=== PATIENT | male | born 1975 | race Caucasian/White ===

== ENCOUNTER 2017-08-04 06:57 | Emergency (ER) | payer SELFPAY ==
[2017-08-04] MEDS: IPRATROPIUM (NEB) 0.5 MG/2.5 ML AMP NEB (09:13)
[2017-08-04] MEDS: ALBUTEROL 0.5% (NEB) 2.5 MG/0.5 ML AMP INH (09:13)
[2017-08-04 09:14] LABS: ADD MAN DIFF? NO
[2017-08-04 09:17] LABS: BASOPHIL # 0.1 10^3/ul (0.0-0.1); BASOPHILS % 1.6 % (0.0-2.0); EOSINOPHILS # 1.1 10^3/ul (0.0-0.5); EOSINOPHILS % 16.1 % (0.0-7.0); HEMATOCRIT 50.1 % (42.0-52.0); HEMOGLOBIN 16.8 g/dl (14.0-18.0); LYMPHOCYTES # 1.5 10^3/ul (0.8-2.9); LYMPHOCYTES % 21.7 % (15.0-51.0); MEAN CORPUSCULAR HEMOGLOBIN 31.9 pg (29.0-33.0); MEAN CORPUSCULAR HGB CONC 33.5 g/dl (32.0-37.0); MEAN CORPUSCULAR VOLUME 95.2 fl (82.0-101.0); MEAN PLATELET VOLUME 10.6 fl (7.4-10.4); MONOCYTE # 0.7 10^3/ul (0.3-0.9); MONOCYTES % 10.4 % (0.0-11.0); NEUTROPHIL # 3.4 10^3/ul (1.6-7.5); NEUTROPHILS % 50.1 % (39.0-77.0); PLATELET COUNT 238 10^3/UL (140-415); RED BLOOD COUNT 5.26 10^6/ul (4.70-6.10)
[2017-08-04 09:17] LABS: WHITE BLOOD COUNT 6.8 10^3/ul (4.8-10.8)
[2017-08-04 09:39] LABS: ANION GAP 19 (8-16); BLOOD UREA NITROGEN 22 mg/dl (7-20); CALCIUM 9.5 mg/dl (8.4-10.2); CARBON DIOXIDE 30 mmol/L (21-31); CHLORIDE 100 mmol/L (97-110); CREATININE 0.96 mg/dl (0.61-1.24); GLUCOSE 74 mg/dl (70-220); SODIUM 144 mmol/L (135-144)
[2017-08-04 09:57] LABS: TROPONIN-I < 0.012 ng/ml (0.00-0.12)
[2017-08-04] MEDS: METHYLPREDNISOLONE 125 MG INJ IM (10:33)
== END 2017-08-04 11:01 | disposition home or self-care (01) ==
LOC: FTE 06:57
DX: R05 Cough (principal); R06.2 Wheezing; R06.02 Shortness of breath
CPT/HCPCS: 36415; 71045; 80048; 84484; 85025; 93005; 96372; 99285-25

== ENCOUNTER 2017-09-16 17:25 | Emergency (ER) | payer SELFPAY ==
[2017-09-16] MEDS: MAGNESIUM SULFATE 2 GM/50 ML 50 ML IVPB (19:23)
[2017-09-16] MEDS: METHYLPREDNISOLONE 125 MG INJ IV (19:23)
[2017-09-16] MEDS: ALBUTEROL 0.5% (NEB) 2.5 MG/0.5 ML AMP INH (19:45)
[2017-09-16] MEDS: IPRATROPIUM (NEB) 0.5 MG/2.5 ML AMP INH (19:45)
== END 2017-09-16 21:17 | disposition home or self-care (01) ==
LOC: FTE 17:25
DX: J06.9 Acute upper respiratory infection, unspecified (principal); J45.901 Unspecified asthma with (acute) exacerbation
CPT/HCPCS: 71045; 94644; 96374; 96375; 99284-25

== ENCOUNTER 2017-09-26 17:43 | Emergency (ER) | payer SELFPAY ==
[2017-09-26] MEDS: predniSONE 20 MG TAB PO (20:43)
[2017-09-26] MEDS: ALBUTEROL 0.083% (NEB) 2.5 MG/3 ML AMP HHN ×3 (20:44→22:23)
[2017-09-26] MEDS: IPRATROPIUM (NEB) 0.5 MG/2.5 ML AMP HHN ×2 (21:14→22:24)
== END 2017-09-26 23:48 | disposition home or self-care (01) ==
LOC: FTE 17:43
DX: J45.901 Unspecified asthma with (acute) exacerbation (principal)
CPT/HCPCS: 94640; 94664; 99284-25